=== PATIENT | male | born 1975 | race Caucasian/White ===

== ENCOUNTER 2017-08-25 12:25 | Observation (INO) ==
[2017-08-25] MEDS ORDERED: Nitroglycerin 0.4 MG TAB.SUBL SL ONE ×2 (12:34→12:35)
[2017-08-25] MEDS ORDERED: 0.9 % Sodium Chloride 500 ML IVC ONE (12:34)
[2017-08-25] MEDS ORDERED: 0.9 % Sodium Chloride 1,000 ML ONE (12:35)
[2017-08-25] MEDS ORDERED: Ondansetron 4 MG/2 ML VIAL IVP ONE (12:38)
--- NOTE | 2017-08-25 12:38 | Emergency Department Note ---
Disposition Clinical Impression: Chest pain Qualifiers: Chest pain type: unspecified Qualified Code(s): R07.9 - Chest pain, unspecified Hypertension Qualifiers: Hypertension type: unspecified Qualified Code(s): I10 - Essential (primary) hypertension Disposition: Admitted As Inpatient Condition: Fair Referrals: Ginger Callejas DO [Primary Care Provider] - Forms: ED Satisfaction Letter Time of Disposition: 14:16 Chest Pain HPI - General Chief Complaint: ED Chest Pain Stated Complaint: chest pain Time Seen by Provider: 08/25/17 12:34 Source: patient, EMS Mode of arrival: ambulatory Limitations: no limitations Vital Signs Reviewed: Yes Nursing Notes Reviewed: Yes - History of Present Illness HPI Narrative: 42-year-old male with a former history of hypertension as her virus of chest pain. Patient states in 2 months it was last night became acutely worse in the past 2 hours. Patient describing retrosternal chest pressure without radiation. Nonexertional. Patient does note some nausea vomiting diaphoresis social pain. Patient denies any dyspnea. Patient denies history of prior heart attacks. Patient arrived via EMS. Patient received full dose aspirin as well as one nitroglycerin prior to arrival. Severity scale (1-10): 4 - Related Data Home Medications Medication Instructions Recorded Confirmed No Known Home Drugs 08/25/17 08/25/17 Allergies Allergy/AdvReac Type Severity Reaction Status Date / Time Buspirone [From BuSpar] AdvReac Hives Verified 11/19/15 01:57 All systems ED: reviewed and negative except as stated. Constitutional: Denies: fever (`) Cardiovascular: Reports: chest pain Respiratory: Denies: cough, dyspnea Gastrointestinal: Reports: nausea, vomiting. Denies: abdominal pain Chest Pain PMH - Past Medical History Medical history: Reports: hypertension Psychiatric history: Reports: no psych history - Social History Smoking Status: Never smoker Alcohol use: Reports: none Drug use: Reports: none Physical Exam - General Limitations: no limitations General appearance: alert, in distress - Head Head exam: atraumatic, normocephalic, normal inspection - Eye Eye exam: Present: normal appearance, PERRL, EOMI - ENT ENT exam: normal exam, normal oropharynx - Neck Neck exam: Present: normal inspection, trachea midline - Chest Chest inspection: Present: normal inspection, symmetric chest wall rise. Absent : tenderness - Respiratory Respiratory exam: Present: normal lung sounds bilaterally. Absent: respiratory distress - Cardiovascular Cardiovascular exam: Present: regular rate, normal rhythm. Absent: systolic murmur - Abdominal Exam Abdominal exam: Present: soft, Non-Tender - Extremities Exam Extremities exam: Present: normal inspection. Absent: pedal edema - Expanded Lower Extremity Exam Neurovascular/Tendon exam: Present: normal capillary refill - Back Exam Back exam: Present: normal inspection - Neurological Exam Neurological exam: Present: alert, oriented X3 - Skin Skin exam: Present: warm, dry, intact, normal color Course - Reevaluation(s) Reevaluation #1: Patient seen and examined. Noted relief of pain after 2 nitro Time: 13:16 Reevaluation #2: Repeat EKG shows sinus bradycardia with no acute ST-T wave changes. Left axis. Time: 13:51 Vital Signs Temperature 0 F L 08/25/17 12:30 Pulse Rate 91 08/25/17 12:30 Respiratory Rate 22 08/25/17 12:30 Blood Pressure 170/107 08/25/17 12:30 O2 Sat by Pulse Oximetry 100 08/25/17 12:30 Temperature 0 F L 08/25/17 12:30 Pulse Rate 61 08/25/17 13:44 Respiratory Rate 13 08/25/17 13:44 Blood Pressure 155/91 08/25/17 13:44 O2 Sat by Pulse Oximetry 98 08/25/17 13:44 Oxygen Delivery Oxygen Delivery Room Air Chest Pain - Lab Data Lab results reviewed: Yes I reviewed the patient's lab results. Result diagrams: 08/25/17 12:34 08/25/17 12:34 Lab Results 08/25/17 08/25/17 08/25/17 Range/Units 12:34 12:34 12:34 WBC 7.9 (4.3-11.1) K/mcL RBC 4.94 (4.19-5.50) M/mcL Hgb 14.5 (12.9-16.9) g/dL Hct 42.5 (37.5-50.1) % MCV 86.0 (83.0-100.0) fL MCH 29.4 (28.0-33.3) pg MCHC 34.1 (31.6-35.5) g/dL RDW 11.9 (11.5-14.5) % Plt Count 314 (140-400) K/mcL MPV 9.7 (9.4-12.4) fL Immature Gran % 0.3 (0-4) % Seg Neutrophils % 49.0 % Lymphocytes % 38.4 % Monocytes % 9.5 % Eosinophils % 2.4 % Basophils % 0.4 % Neutrophils # 3.9 (1.6-8.9) K/mcL Lymphocytes # 3.0 (0.6-4.6) K/mcL Monocytes # 0.8 (0.0-1.3) K/mcL Eosinophils # 0.2 (0.0-0.6) K/mcL Basophils # 0.0 (0.0-0.2) K/mcL PT 11.3 (9.4-12.1) Seconds INR 1.1 APTT 28.4 (26.0-36.0) Seconds Sodium (136-145) mEq/L Potassium (3.5-5.1) mEq/L Chloride (98-107) mEq/L Carbon Dioxide (23-29) mEq/L BUN (6-20) mg/dL Creatinine (0.70-1.30) mg/dL Est GFR ( Amer) (> 60) Est GFR (Non-Af Amer) (> 60) BUN/Creatinine Ratio (6-26) Glucose (70-105) mg/dL Calculated Osmolality (280-300) Calcium (8.6-10.3) mg/dL Troponin I (< 0.04) ng/mL B-Natriuretic Peptide 21 (Less than 100) pg/mL 08/25/17 Range/Units 12:34 WBC (4.3-11.1) K/mcL RBC (4.19-5.50) M/mcL Hgb (12.9-16.9) g/dL Hct (37.5-50.1) % MCV (83.0-100.0) fL MCH (28.0-33.3) pg MCHC (31.6-35.5) g/dL RDW (11.5-14.5) % Plt Count (140-400) K/mcL MPV (9.4-12.4) fL Immature Gran % (0-4) % Seg Neutrophils % % Lymphocytes % % Monocytes % % Eosinophils % % Basophils % % Neutrophils # (1.6-8.9) K/mcL Lymphocytes # (0.6-4.6) K/mcL Monocytes # (0.0-1.3) K/mcL Eosinophils # (0.0-0.6) K/mcL Basophils # (0.0-0.2) K/mcL PT (9.4-12.1) Seconds INR APTT (26.0-36.0) Seconds Sodium 139 (136-145) mEq/L Potassium 3.2 L (3.5-5.1) mEq/L Chloride 104 (98-107) mEq/L Carbon Dioxide 26 (23-29) mEq/L BUN 10 (6-20) mg/dL Creatinine 0.98 (0.70-1.30) mg/dL Est GFR ( Amer) > 60 (> 60) Est GFR (Non-Af Amer) > 60 (> 60) BUN/Creatinine Ratio 10 (6-26) Glucose 114 H (70-105) mg/dL Calculated Osmolality 288 (280-300) Calcium 9.8 (8.6-10.3) mg/dL Troponin I < 0.03 (< 0.04) ng/mL B-Natriuretic Peptide (Less than 100) pg/mL - Radiology Data Radiology results reviewed: Yes I reviewed the patient's radiology results. Chest X-Ray 08/25/17 12:34 IMPRESSION: 1. No acute findings in the chest. 2. Pulmonary vascular congestion. D/ / Aryan Leon MD / Aryan Leon MD Interpreting Provider: Aryan Leon MD - EKG Data EKG attestation: Yes I reviewed and interpreted this EKG. EKG shows normal: sinus rhythm Rate: normal Rhythm: NSR [place]/QRS: left axis deviation Interpretation: no acute changes, nonspecific ST-T wave changes S.B.A.R. - S.B.A.RVasyl Situation: Demographics Background: Presenting Complaint Assessment: Vital Signs, Course and respsone to treatment, Patient/Family Expectation Recommendation: Barrier(s) to disposition, Recommendation based on pending studies, treatments, or consults S.B.A.RVasyl Report Given to: William Hickman SVasylBEd Repor Time: 14:15 Attestation Statement - Attestation Attestation: I examined this patient and my medical decision-making was reviewed with the Resident Physician, Dr. Bansal. I agree with the documented findings, disposition and treatment plan as described except to the extent set forth below. Patient is a 42-year-old white male with a history of hypertension who presents by EMS today with a two-hour history of substernal nonradiating chest pain. Patient reports experiencing some mild discomfort in this area last night and then 2 hours prior to arrival had acute worsening of this pain associated with diaphoresis, nausea and vomiting, and some mild shortness of breath. Patient denies any significant family history. Patient had no prior cardiac workup. Patient was given aspirin and 1 nitroglycerin prior to arrival with no change in symptoms. I agree with patient's physical exam findings as documented. Patient was hypertensive on arrival. Patient's initial EKG shows a normal sinus rhythm without acute ischemia. Patient received a complete nitroglycerin trial with significant reduction in his symptoms and improvement in his blood pressure. Drawn and sent including a BNP and troponin as well as chest x-ray. Chest x- ray shows mild pulmonary vascular congestion with normal mediastinum and cardiac silhouette. Laboratory values are all within normal limits. Repeat EKG remains normal sinus without acute ischemia. Patient was placed on a nitro drip and this is been titrated he is resting comfortably at this time pain- free. Case was discussed with the hospitalist and patient will be admitted for further evaluation of chest pain.
[2017-08-25 13:11] LABS: Basophils % 0.4 %; Eosinophils # 0.2 K/mcL (0.0-0.6); Eosinophils % 2.4 %; Hematocrit 42.5 % (37.5-50.1); Hemoglobin 14.5 g/dL (12.9-16.9); Immature Granulocytes % 0.3 % (0-4); Lymphocytes % 38.4 %; Mean Corpuscular HGB Conc 34.1 g/dL (31.6-35.5); Mean Corpuscular Hemoglobin 29.4 pg (28.0-33.3); Mean Platelet Volume 9.7 fL (9.4-12.4); Monocytes # 0.8 K/mcL (0.0-1.3); Monocytes % 9.5 %; Neutrophils # 3.9 K/mcL (1.6-8.9); Platelet Count 314 K/mcL (140-400); Red Blood Count 4.94 M/mcL (4.19-5.50); Red Cell Distribution Width 11.9 % (11.5-14.5)
[2017-08-25 13:16] LABS: INR 1.1; Prothrombin Time 11.3 Seconds (9.4-12.1)
[2017-08-25 13:19] LABS: Activated Partial Thrombo Time 28.4 Seconds (26.0-36.0)
[2017-08-25 13:25] LABS: Troponin I < 0.03 ng/mL (< 0.04)
[2017-08-25] MEDS ORDERED: Nitroglycerin 25 MG/250 ML INFUS..BTL IVC SCH (13:30)
[2017-08-25 13:40] LABS: BUN/Creatinine Ratio 10 (6-26); Blood Urea Nitrogen 10 mg/dL (6-20); Calcium 9.8 mg/dL (8.6-10.3); Carbon Dioxide 26 mEq/L (23-29); Chloride 104 mEq/L (98-107); Glucose 114 mg/dL (70-105); Osmolality,Calculated 288 (280-300); Potassium 3.2 mEq/L (3.5-5.1); Sodium 139 mEq/L (136-145); eGFR For African Americans > 60 (> 60); eGFR For Non-African Americans > 60 (> 60)
[2017-08-25] MEDS ORDERED: Nitroglycerin 0.4 MG TAB.SUBL SL PRN (17:09)
[2017-08-25] MEDS ORDERED: *HR* Promethazine 25 MG/ML VIAL IVP PRN (17:11)
[2017-08-25] MEDS ORDERED: Naloxone 0.4 MG/ML INJ IVP PRN (17:12)
[2017-08-25] MEDS ORDERED: Acetaminophen 325 MG TABLET PO PRN (17:12)
[2017-08-25] MEDS ORDERED: *HR* HYDROcodone/Acet 5/325 mg TABLET PO PRN (17:12)
[2017-08-25] MEDS ORDERED: Pantoprazole 40 MG VIAL IVP SCH (17:15)
[2017-08-25] MEDS: Aspirin Enteric Coated 81 MG Tablet PO SCH (17:47)
--- NOTE | 2017-08-25 18:18 | Internal Med History&Physical ---
Addendum entered and electronically signed by Major Roy MD 08/26/17 08:15: Addendum entered and electronically signed by Errol Shipley MD 08/26/17 07:41: Patient was evaluated by my partner Dr Roy. Please see addendum below by Dr Roy for DOS 08/25/17 Original Note: <William Hickman - Last Filed: 08/25/17 18:41> Date of Encounter: 08/25/17 Time of Encounter: 15:00 Assessment and Plan (1) Chest pain Current visit: Yes Status: Acute Acute chest pain that pt. reports has been intermittent for the past two weeks. Presents as chest pressure in central chest w/o radiation. Became worse last night and today w/numbness and tingling in bilateral hands. N/V/Diaphoresis/SOB/ Weakness today. Initial troponin negative. Denies cardiac hx or recent work-up. Previous HTN dx but does not take medication currently. Will trend trops x2. Echocardiogram ordered. Aspirin. 80 mg Lipitor PO now. Nitro SL PRN. Continuous cardiac telemetry. Cardiac diet w/NPO @ midnight for a.m. exercise nuclear stress. Consider cardiology consult based on abnormal troponins, echocardiogram , and/or stress test. Hypokalemia being corrected w/PO potassium. Pt. and f/u labs to be monitored. Pt. discussed w/Dr. Shipley who agrees w/plan of care. Pt. is high risk for further morbidity and cardiac event based on two week duration of chest pain that worsened, current sx of N/V/SOB/diaphoresis, continued chest pain after nitroglycerin, hx of HTN, and familial hx of cardiac disease. Observation. Qualifiers: Chest pain type: other chest pain Qualified Code(s): R07.89 - Other chest pain; R07.8 - Other chest pain (2) Hypokalemia Current visit: Yes Status: Acute Acute hypokalemia w/potassium of 3.2 on admission. PO potassium 40 mEq ONCE ordered. Recheck potassium at 23:00. Monitor pt. and f/u labs. Continuous telemetry. (3) SOB (shortness of breath) Current visit: Yes Status: Acute Acute SOB r/t current chest pressure. Pt. denies use of home O2, CHF, COPD, or tobacco use. Concern for new onset of SOB so D-dimer ordered which was <215. Supplemental O2 w/titration and SpO2 monitoring. (4) Nausea and vomiting Current visit: Yes Status: Acute Acute N/V. IVP Phenergan 12.5 Q6 PRN for N/V. IVP Protonix 40 mg daily. Qualifiers: Vomiting type: cyclical vomiting Vomiting Intractability: non-intractable Qualified Code(s): G43.A0 - Cyclical vomiting, not intractable (5) Weakness Current visit: Yes Status: Acute Acute weakness r/t current chest pain sx. Falls/safety precautions. (6) DVT prophylaxis Current visit: Yes Status: Acute Heparin 5,000 units SQ Q8 for DVT prophylaxis. Monitor pt. for signs of bleeding. Internal Medicine - H&P: HPI Chief complaint: Chest pain Admitted From: Emergency Dept Plans for Post Hospital Care: Home History of present illness: Mr. Davila is a 42 year old male w/PMH of previous tx for HTN presents from the ED with chief complaint of chest pain that has been intermittent for the past 2 weeks and became worse last night. Patient states pain is a chest pressure and feeling of squeezing in his chest with numbness and tingling in his bilateral hands. Patient also reports vision changes with blurriness, nausea, vomiting, SOB, diaphoresis, weakness, and headache. Symptoms returned today while at work. Patient denies cardiac history or previous cardiac workup. Initial troponin negative. Patient denies recent illness, fever, chills, palpitations, abdominal pain, diarrhea, constipation, cough, chest congestion, unusual bleeding, pre-syncope, or syncope. Past Med Surg Social Fam HX - Past Medical History Source: patient, old records reviewed, obtained from family Medical history: hypertension (Does not currently take medication for HTN) Psychiatric history: no psych history - Past Surgical History Surgical History: no surgical history - Social History Smoking Status: Never smoker Smokeless Tobacco Status: No Alcohol use: none Drug use: none Current living situation: Home Activity Level: Independent ambulation, Very active Recent Out of Country Travel Within the Last 8 Weeks: No Exposure or Possible Exposure to Illness During Travel: No - Family History Mother Race: Family Member Ethnicity: Non- Living Status: Still Living Hx Family Cardiac Disorders: Yes (HTN) Hx Family Cancer: Yes (Breast) Hx Family Endocrine Disorder: Yes (DM) Hx Family Psychosocial Disorders: Yes (Bipolar) Father Race: Family Member Ethnicity: Non- Living Status: Still Living Hx Family Cardiac Disorders: Yes (HTN) Hx Family Endocrine Disorder: Yes (DM) Brother Race: Family Member Ethnicity: Non- Living Status: Still Living Hx Family Endocrine Disorder: Yes (Thyroid disease) Sister Race: Family Member Ethnicity: Non- Living Status: Still Living Hx Family Cardiac Disorders: Yes (HTN) Internal Medicine - H&P: Meds No Known Home Drugs 08/25/17 [History] 3 Allergy/AdvReac Type Severity Reaction Status Date / Time Buspirone [From BuSpar] AdvReac Hives Verified 11/19/15 01:57 All Systems PM: A 10-system review of systems was performed and is negative for pertinent findings except as documented above in the HPI. - Constitutional Constitutional: as per HPI, weakness, no chills, no fever(s), no night sweats - EENT Eyes: as per HPI, blurry vision, change in vision, no discharge, no pain, no photophobia Ears: no ear discharge, no ear pain, no tinnitus Nose, mouth and throat: no dysphagia, no nasal discharge, no neck pain, no sore throat - Breasts Breasts: as per HPI - Cardiovascular Cardiovascular ROS IM: as per HPI, chest pain (Pressure in central chest ), diaphoresis, dyspnea, dyspnea on exertion, no lightheadedness, no palpitations, no syncope - Respiratory Respiratory: as per HPI, dyspnea, dyspnea on exertion, no cough, no wheezing, no excessive phlegm production - Gastrointestinal Gastrointestinal: as per HPI, nausea, vomiting, no abdominal pain, no diarrhea, no hematemesis, no hematochezia, no melena - Genitourinary Genitourinary ROS male: as per HPI - Musculoskeletal Musculoskeletal ROS IM: as per HPI, numbness, tingling - Integumentary Integumentary IM: no rash, no unusual bruising - Neurological Neurological ROS: as per HPI, weakness, no confusion, no convulsions, no focal weakness, no numbness, no tingling, no tremor(s) - Psychiatric Psychiatric: as per HPI - Endocrine Endocrine IM: as per HPI - Hematologic/Lymphatic Hematologic/Lymphatic: no easy bruising - Allergic/Immunologic Allergic/Immunologic: as per HPI - Constitutional Vitals: Temp Pulse Resp BP Pulse Ox 98.4 F 59 16 130/90 98 08/25/17 14:47 08/25/17 16:18 08/25/17 16:18 08/25/17 16:18 08/25/17 16:18 General appearance: Present: cooperative, mild distress (Chest pressure), A&O X 3, pleasant, obese, answers questions appropriately - Head Head exam: Present: atraumatic, normocephalic - Eye Eye exam: Present: PERRL, conjuntiva pink, sclera anicteric Pupils: Present: PERRL - ENT ENT exam: Present: normal exam - Neck Neck exam general surgery: Present: supple, trachea midline. Absent: lymphadenopathy - Respiratory Respiratory exam: Present: CTAB. Absent: accessory muscle use, rales, rhonchi, wheezes - Cardiovascular Cardiovascular exam: Present: bradycardia - GI/Abdominal GI/Abdominal exam: Present: normal bowel sounds, soft, no peritoneal signs. Absent: distended, tenderness - Rectal Rectal exam: Present: deferred - Additional comments: exam deferred. - Extremities Exam Extremities exam: Present: warm, radial pulses palpable and symmetrical. Absent : calf tenderness, cyanotic, pedal edema - Back Exam Back exam: Present: normal inspection - Neurological Exam Neurological exam: Present: CN II-XII intact, oriented X3, no focal deficits. Absent: pronater drift, facial droop, speech deficit - Psychiatric Psychiatric exam: Present: normal affect, normal mood - Skin Skin exam: Present: dry, intact Internal Med - H&P Results - Labs CBC & Chem 7: 08/25/17 12:34 08/25/17 12:34 - EKG Data EKG shows normal: sinus rhythm Rate: bradycardia - EKG Data Prior EKG available for review: yes EKG comments: 08/25/17 18:24 EKG dated 05/28/15 shows sinus bradycardia. EKG dated 08/25/17 12:32 shows sinus rhythm with voltage criteria for LVH. EKG dated 08/25/17 13:47 shows sinus bradycardia with moderate voltage criteria for LVH. - Diagnostic Studies Chest x-ray Additional comments: Impressions Chest X-Ray 08/25/17 12:34 IMPRESSION: 1. No acute findings in the chest. 2. Pulmonary vascular congestion. D/ / Aryan Leon MD / Aryan Leon MD Interpreting Provider: Aryan Leon MD <Major Roy - Last Filed: 08/25/17 20:37> Date of Encounter: 08/25/17 Internal Medicine - H&P: HPI History of present illness: Mr. Davila is a 42 year old male All Systems PM: A 10-system review of systems was performed and is negative for pertinent findings except as documented above in the HPI. - Constitutional Vitals: Temp Pulse Resp BP Pulse Ox 97.9 F 66 16 143/93 95 08/25/17 18:59 08/25/17 18:59 08/25/17 18:59 08/25/17 18:59 08/25/17 18:59 Internal Med - H&P Results - Labs CBC & Chem 7: 08/25/17 12:34 08/25/17 12:34 Labs: Cardiac Enzymes 08/25/17 Range/Units 18:06 Troponin I < 0.03 (< 0.04) ng/mL - Attending Attestation I examined this patient and my medical decision-making was reviewed with the Resident Physician/RADIOLOGICAL METALLURGIST. I agree with the documented findings, disposition and treatment plan as described except to the extent set forth below. 42/male Admitted with chest pain/elevated blood pressure. Has a background history of a blood pressure but noncompliant with the medication. Initial 2 troponins negative/EKG nonspecific changes. We will replace potassium. We will follow ALIN protocol <Errol Shipley - Last Filed: 08/26/17 09:01> Date of Encounter: 08/25/17 Internal Medicine - H&P: HPI History of present illness: Mr. Davila is a 42 year old male All Systems PM: A 10-system review of systems was performed and is negative for pertinent findings except as documented above in the HPI. - Constitutional Vitals: Temp Pulse Resp BP Pulse Ox 97.6 F 67 16 128/76 95 08/26/17 04:04 08/26/17 04:04 08/26/17 04:04 08/26/17 04:04 08/26/17 04:04 Internal Med - H&P Results - Labs CBC & Chem 7: 08/26/17 00:24 08/26/17 00:24 Labs: Short CBC 08/26/17 Range/Units 00:24 WBC 7.5 (4.3-11.1) K/mcL Hgb 12.8 L D (12.9-16.9) g/dL Hct 37.1 L (37.5-50.1) % Plt Count 255 (140-400) K/mcL Neutrophils # 3.4 (1.6-8.9) K/mcL BMP 08/26/17 00:24 Sodium 139 Potassium 3.4 L Chloride 108 H Carbon Dioxide 24 BUN 11 Creatinine 0.86 Glucose 114 H Calcium 8.7 Cardiac Enzymes 08/25/17 08/26/17 Range/Units 18:06 00:24 Troponin I < 0.03 < 0.03 (< 0.04) ng/mL Liver Function 08/26/17 Range/Units 00:24 Total Bilirubin 0.5 (0.3-1.0) mg/dL AST 23 (13-39) Units/L ALT 41 (7-52) Units/L Alkaline Phosphatase 41 (34-104) Units/L Albumin 3.5 (3.5-5.7) g/dL
[2017-08-25] MEDS ORDERED: Melatonin 3 MG TABLET PO SCH (21:00)
[2017-08-25] MEDS: *HR* Heparin 5,000 UNIT/ML VIAL SQ SCH (21:57)
[2017-08-26 01:30] LABS: Basophils % 0.3 %; Eosinophils # 0.3 K/mcL (0.0-0.6); Eosinophils % 3.6 %; Hematocrit 37.1 % (37.5-50.1); Immature Granulocytes % 0.3 % (0-4); Lymphocytes % 39.5 %; Mean Corpuscular HGB Conc 34.5 g/dL (31.6-35.5); Mean Corpuscular Hemoglobin 30.1 pg (28.0-33.3); Mean Corpuscular Volume 87.3 fL (83.0-100.0); Mean Platelet Volume 9.6 fL (9.4-12.4); Monocytes # 0.8 K/mcL (0.0-1.3); Neutrophils # 3.4 K/mcL (1.6-8.9); Platelet Count 255 K/mcL (140-400); Red Blood Count 4.25 M/mcL (4.19-5.50); Segmented Neutrophils % 45.3 %
[2017-08-26 01:31] LABS: Hemoglobin 12.8 g/dL (12.9-16.9)
[2017-08-26 02:51] LABS: Chloride 108 mEq/L (98-107); Potassium 3.4 mEq/L (3.5-5.1); Sodium 139 mEq/L (136-145)
[2017-08-26 02:52] LABS: Alanine Aminotransferase 41 Units/L (7-52); Albumin 3.5 g/dL (3.5-5.7); Albumin/Globulin Ratio 1.5 (1.1-2.2); Alkaline Phosphatase 41 Units/L (34-104); Aspartate Amino Transferase 23 Units/L (13-39); BUN/Creatinine Ratio 13 (6-26); Bilirubin,Total 0.5 mg/dL (0.3-1.0); Blood Urea Nitrogen 11 mg/dL (6-20); Calcium 8.7 mg/dL (8.6-10.3); Carbon Dioxide 24 mEq/L (23-29); Chol/HDL Ratio 4.3 (0-4.9); Cholesterol 134 mg/dL (< 200); Globulin 2.4 g/dL (2.4-3.5); Glucose 114 mg/dL (70-105); HDL Cholesterol 31 mg/dL (40-59); LDL Cholesterol,Calculated 74 mg/dL (0-99); Osmolality,Calculated 288 (280-300); Thyroid Stimulating Hormone 1.179 mcIU/mL (0.340-5.600); Total Protein 5.9 g/dL (6.4-8.9); Triglycerides 146 mg/dL (< 150); eGFR For African Americans > 60 (> 60); eGFR For Non-African Americans > 60 (> 60)
[2017-08-26] MEDS: *HR* Heparin 5,000 UNIT/ML VIAL SQ SCH (05:22)
[2017-08-26 08:02] LABS: Hemoglobin A1C 5.3 %
[2017-08-26] MEDS: Aspirin Enteric Coated 81 MG Tablet PO SCH (10:12)
[2017-08-26 11:22] VITALS: BP 149/83
--- NOTE | 2017-08-26 12:47 | Discharge Summary ---
- NOTES TO OUTPATIENT PROVIDER Notes to Outpatient Provider: Started on FARHANA inhibitor for blood pressure control, monitor blood pressure. Orders not resulted at time of discharge: Pending orders 08/25/17 17:14 NM brenden perf SPECT multi [NM] Routine 08/27/17 04:00 Complete Blood Count [HEME] AM 0400 Comprehensive Metabolic Panel AM 0400 08/28/17 04:00 Complete Blood Count [HEME] AM 0400 Comprehensive Metabolic Panel AM 0400 08/29/17 04:00 Complete Blood Count [HEME] AM 0400 Comprehensive Metabolic Panel AM 0400 Date of Encounter: 08/26/17 Time of Encounter: 09:45 - Discharge Diagnosis (1) Chest pain Priority: Primary Status: Acute Qualifiers: Chest pain type: other chest pain Qualified Code(s): R07.89 - Other chest pain; R07.8 - Other chest pain (2) Hypertension Priority: Primary Status: Chronic Qualifiers: Hypertension type: essential hypertension Qualified Code(s): I10 - Essential (primary) hypertension Hospital course: Mr. Davila is a 42 year old male with no significant medical history, who was admitted with left-sided chest pain. Patient was noted to have uncontrolled hypertension with systolic blood pressure greater than 170 mmHg in the emergency room. He was started on IV nitroglycerin drip with improvement in blood pressure. Initial labs, EKG and chest x-ray showed no acute abnormality. Telemetry monitoring and serial troponins remained negative for ACS. Transthoracic echocardiogram was done which showed preserved ejection fraction, mild concentric LVH, mild left ventricular diastolic dysfunction. Nuclear stress test was negative for ischemia or infarct. Patient reports having been on lisinopril in the past, which was discontinued due to appropriate blood pressure control. However, current vital signs show that he has persistent hypertension and probably would benefit from resuming lisinopril. Lifestyle modifications including low sodium diet and moderate exercise and weight loss have been discussed and patient verbalized understanding. He is medically stable for discharge with outpatient follow-up. Discharge discussed with: patient, family - Time Spent with Patient Total time spent providing and/or coordinating discharge services: Greater than 30 minutes (40 min) - Discharge Medications Home Medications: No Known Home Drugs 08/25/17 [History] Allergies/Adverse Reactions: 3 Allergy/AdvReac Type Severity Reaction Status Date / Time Buspirone [From BuSpar] AdvReac Hives Verified 11/19/15 01:57 Date of admission: 08/25/17 17:04 Primary care physician: Ginger Callejas DO Discharging clinician: Juliana Lott Anticipated date of discharge: 08/26/17 - Constitutional Vitals: Temp Pulse Resp BP Pulse Ox 97.8 F 78 20 149/83 95 08/26/17 11:21 08/26/17 11:21 08/26/17 11:21 08/26/17 11:21 08/26/17 11:21 General appearance: Present: A&O X 3, obese, answers questions appropriately - Cardiovascular Cardiovascular exam: Present: RRR, +S1, +S2. Absent: diastolic murmur, gallop, rubs, systolic murmur - Patient Status Disposition: Home, Self-Care Condition: Good Functional capacity at discharge: independent ambulation Overall status at discharge: patient is progressing back to baseline - Discharge Instructions Follow Up With: Ginger Callejas DO [Primary Care Provider] - Additional Instructions: F/up with PCP in 1-2 weeks - Diet and Activity Activity: resume usual activities as tolerated Diet: low fat, low cholesterol, low salt diet
[2017-08-26] MEDS ORDERED: Potassium Chloride Elixir 20 MEQ/15 ML UDC PO ONE (13:07)
--- NOTE | 2017-08-26 14:24 | Electrocardiograph Report ---
[facility] Test Date: 2017-08-25 Pat Name: Kendell Davila Department: 103 Room: 2A33 Gender: M Hospitality Services Manager: JENY : 1975 Requested By: Johnnie Bansal Order Number: [id number] Reading MD: Miguel Angel Gomez MD Measurements Intervals [place] Rate: 82 P: 23 NC: 125 QRS: -18 QRSD: 104 T: 30 QT: 353 QTc: 392 Interpretive Statements SINUS RHYTHM VOLTAGE CRITERIA FOR LVH [MEETS CRITERIA IN ONE OF: R(aVL), S(V1), R(V5), R(V5/V6) +S(V1)] Electronically Signed On 08-26-2017 14:22:41 EST by Miguel Angel Gomez MD
--- NOTE | 2017-08-26 17:39 | Electrocardiograph Report ---
[place] [address] Test Date: 2017-08-25 Pat Name: Kendell Davila Department: 103 Room: 2A Gender: M Production Checker: FELIPE : 1975 Requested By: Johnnie Bansal Order Number: [id number] Reading MD: Jacqueline Hammonds Measurements Intervals [place] Rate: 58 P: 27 [place]: 154 QRS: -14 QRSD: 102 T: 15 QT: 413 QTc: 411 Interpretive Statements SINUS BRADYCARDIA MODERATE VOLTAGE CRITERIA FOR LVH, CONSIDER NORMAL VARIANT Electronically Signed On 08-26-2017 17:38:04 EST by Jacqueline Hammonds
== END 2017-08-26 14:22 | disposition home or self-care (01) ==
LOC: 2ANU 12:25 → EMEROO 12:25 → SUATTDRO 17:04 → 2ANU 17:22
PROVIDERS: ADMIT Internal Medicine; ATTEND Internal Medicine